=== PATIENT | female | born 1970 | race Caucasian/White ===

== ENCOUNTER 2025-07-06 18:29 | Observation (INO) | payer OTHER, SELFPAY ==
[2025-07-06] VITALS (7 sets, daily range): BP systolic 132–144; BP diastolic 54–68; PULSE 71–73; RESP 12–18; TEMP 36.6; O2SAT 98–100; BMI 18.9
[2025-07-06 19:30] LABS: Hematocrit 28.9 % (37-47); Hemoglobin 9.3 g/dL (12.0-15.0); Immature Granulocytes Count 0.050 X10^3/uL (0.0-0.0); Mean Corp Hgb Conc 32.2 g/dL (32-36); Mean Corpuscular Volume 92.0 fL (81-99); Mean Platelet Vol. 11.2 fl (6.2-12.0); NRBC Flagged by Analyzer 0 % (0-5); Platelet Count 294 K/mm3 (150-450); RBC Distribution Width CV 17.3 % (11.6-14.6); RBC Distribution Width SD 57.2 fl (35.1-43.9); Red Blood Count 3.14 M/mm3 (4.2-5.4); White Blood Count 12.3 K/mm3 (4.4-11.0)
[2025-07-06] MEDS: 0.9% Normal Saline (1000mL) 1,000 ML 999 ML IV (19:43)
--- NOTE | 2025-07-06 19:43 | EX.ED.DYSGE1 ---
HPI History of Present Illness Chief Complaint: Weakness Narrative Narrative: Patient is a 54-year-old female past medical history of diabetes, urolithiasis, pyelonephritis who presents to the emergency department with a chief complaint of generalized weakness, diarrhea not feeling well overall. States that about a week ago she started feeling unwell she notes that she is on Mounjaro for her diabetes and feels that this might be causing her symptoms. She states that she had her lipase checked and it was noted be high. She states that she is post to have a CT scan but since they noted that she was coming to the emergency department they discontinued. Note that the had her gallbladder removed earlier this spring around January at [facility] with Dr. Rahman. Denies any black stools denies blood in her stool states that she has had diarrhea also complains of abdominal pain [facility] Home Medications ?Medication ?Instructions ?Recorded ?Last Taken ?Type buspirone 10 mg tablet 10 mg PO BID 07/06/25 Unknown History cyanocobalamin (vitamin B-12) mcg 07/06/25 Unknown History 1,000 mcg/mL injection solution empagliflozin 25 mg tablet 25 mg PO DAILY 07/06/25 Unknown History (Jardiance) ergocalciferol (vitamin D2) 1,250 PO 07/06/25 Unknown History mcg (50,000 unit) capsule (Vitamin D2) fluoxetine 40 mg capsule 40 mg PO DAILY 07/06/25 Unknown History glimepiride 2 mg tablet 2 mg PO BID 07/06/25 Unknown History infliximab-axxq 100 mg intravenous mg IV 07/06/25 Unknown History solution (Avsola) insulin lispro 100 unit/mL 1 sliding scale dose subcut 07/06/25 Unknown History subcutaneous pen (Humalog KwikPen (U-100) Insulin) leflunomide 10 mg tablet 10 mg PO DAILY 07/06/25 Unknown History magnesium oxide-magnesium amino 1 cap PO DAILY 07/06/25 Unknown History acid chelate 300 mg capsule (Magnesium (oxide/AA chelate)) metformin 500 mg tablet,extended 1,000 mg PO BID 07/06/25 Unknown History release 24 hr pantoprazole 40 mg tablet,delayed 40 mg PO DAILY 07/06/25 Unknown History release pregabalin 150 mg capsule 150 mg PO TID 07/06/25 Unknown History zolpidem 5 mg tablet 5 mg PO QHS PRN PRN sleep 07/06/25 Unknown History Allergy/AdvReac Type Severity Reaction Status Date / Time azithromycin (From z pack) Allergy Mild rash Verified 07/06/25 18:33 Penicillins Allergy Other Verified 07/06/25 18:33 amlodipine AdvReac Mild rash Verified 07/06/25 18:33 Social History Smoking Status: Former smoker ROS ROS ED ROS Narrative Constitutional: Complains of generalized weakness denies any fevers or chills Cardiovascular: Denies chest pain Respiratory: Denies shortness of breath Abdomen: Complains of abdominal pain nausea vomiting diarrhea : Denies urinary symptoms Neurological: Denies numbness, weakness, tingling Musculoskeletal: Denies back pain Skin: Denies any rashes or lesions EXAM Physical Exam Narrative Exam Narrative: General: Patient is lying in bed rest comfortably did appear to be uncomfortable secondary to her abdominal pain Head: Atraumatic, normocephalic Eyes: PERRL bilaterally, EOMI bilaterally, no conjunctival injection noted Neck: Soft and supple, trachea midline Cardiovascular: Regular rate and rhythm Respiratory: Clear to auscultation bilaterally Abdomen: Soft, nondistended, diffuse tenderness to palpation no rebound or guarding on exam Extremities: +4/5 strength noted in the bilateral upper and lower extremities Neurological: Patient follow commands knew that she was at [facility] the year is 2024 Skin: Warm, dry, intact no rashes or lesions noted Const Vital Signs: 07/06/25 18:30 07/06/25 19:45 07/06/25 19:46 Temperature 98 F Temperature Source Oral Pulse Rate 73 72 Respiratory Rate 18 16 Respiratory Effort Non-Labored Respiratory Pattern Normal Blood Pressure 136/60 H 137/62 H Blood Pressure Mean 85 87 Pulse Ox 99 98 Oxygen Delivery Method Room Air 07/06/25 20:00 07/06/25 21:00 07/06/25 22:27 Temperature Temperature Source Pulse Rate 71 72 73 Respiratory Rate 18 12 Respiratory Effort Respiratory Pattern Blood Pressure 133/62 H 133/61 H 132/54 H Blood Pressure Mean 85 85 80 Pulse Ox 100 99 98 Oxygen Delivery Method 07/06/25 23:13 07/06/25 23:14 Temperature 98 F Temperature Source Pulse Rate 72 72 Respiratory Rate 14 14 Respiratory Effort Respiratory Pattern Blood Pressure 144/68 H 144/68 H Blood Pressure Mean 93 93 Pulse Ox 98 98 Oxygen Delivery Method MDM MDM MDM Narrative Medical decision making narrative: Patient is a 54-year-old female who presented to the emergency department the chief complaint of abdominal pain nausea vomiting diarrhea. On the differential diagnose includes but not limited to viral gastroenteritis, pancreatitis, intra-abdominal mass. Once workup is obtained reviewed she will be reevaluated. Patient be given IV fluids morphine Zofran Patient's CBC reviewed and showed a leukocytosis of 12,000, he was 9.3, plate count was noted to be 294. Patient's sodium normal 137, potassium of 4, creatinine was 1. Patient's total bilirubin normal at 1.24, direct bilirubin 0.85. Patient AST and ALT 103 and 41 respectively. Patient alk phos elevated 133, lipase elevated at 170. Patient urinalysis showed positive nitrites 100 leukocyte esterase 10-25 white cells with 3+ bacteria urine was sent for culture she was given a gram Rocephin. Patient CT on pelvis with IV contrast reviewed and showed no bowel obstruction. Findings suggestive of enteritis. Trace nonspecific ascites noted. Discussed case with on-call document scanner Dr. Monae who states the patient can be admitted to the hospital. This point I will discuss case with hospitalist for her pancreatitis, intractable abdominal pain nausea vomiting not tolerating oral intake. Discussed case with hospitalist Dr. Barkley who accept patient for admission. Patient is given another dose of morphine. Notified patient and family was at bedside agreeable this plan all question concerns answered. Lab Data Labs: Laboratory Results - last 24 hr 07/06/25 07/06/25 07/06/25 19:20 19:26 20:48 WBC 12.3 H RBC 3.14 L Hgb 9.3 L Hct 28.9 L MCV 92.0 MCH 29.6 MCHC 32.2 RDW Std Deviation 57.2 H RDW Coeff of Fredy 17.3 H Plt Count 294 MPV 11.2 Immature Gran % (Auto) 0.400 Neut % (Auto) 72.3 H Lymph % (Auto) 16.1 L [place] % (Auto) 6.4 Eos % (Auto) 4.3 Baso % (Auto) 0.5 Absolute Neuts (auto) 8.9 H Absolute Lymphs (auto) 1.98 Nucleated RBC % 0 Sodium 137 Potassium 4.0 Chloride 105 Carbon Dioxide 19.6 L Anion Gap 12 BUN 17 Creatinine 1.00 Estim Creat Clear Calc 60.88 Est GFR (MDRD) Non-Af 67 BUN/Creatinine Ratio 16.8 Glucose 163 H Lactic Acid 1.9 Calcium 9.3 Total Bilirubin 1.24 Direct Bilirubin 0.85 H AST 103 H ALT 41 H Alkaline Phosphatase 133 H Total Protein 6.9 Albumin 3.5 Globulin 3.4 Lipase 170 H Urine Color Yellow Urine Clarity Sl. Cloudy Urine pH 6.0 Ur Specific [place] 1.010 Urine Protein 30 H Urine Glucose (UA) 1000 H Urine Ketones Negative Urine Occult Blood 10 H Urine Nitrite Positive H Urine Bilirubin Negative Urine Urobilinogen Normal Ur Leukocyte Esterase 100 H Urine RBC 0-5 SEEN Urine WBC 10-25 SEEN Ur Squamous Epith Cells 10-25 SEEN Urine Bacteria 3+ Urine Mucus 0 SEEN Urine Yeast RARE Radiography Diagnostic Testing: Clinical Impression(s) from Imaging Studies Abdomen/Pelvis CT 07/06/25 20:05 IMPRESSION: 1. No bowel obstruction or active inflammatory process. 2. Multiple mildly prominent fluid-filled loops of small bowel suggesting enteritis. 3. Trace nonspecific ascites. 4. Lobulated myomatous uterus. Reading Location: [id number] Discharge Plan Dx/Rx/DC Orders Clinical Impression: Pancreatitis, Intractable abdominal pain, Nausea & vomiting Disposition Disposition: Acute Care Hospital [facility]
[2025-07-06 20:00] LABS: AST(SGOT) 103 U/L (<=31); Alanine Aminotransfer ALT/SGPT 41 U/L (<=34); Albumin, Serum 3.5 g/dL (3.5-5.0); Alkaline Phosphatase 133 U/L (35-104); Anion Gap 12 (5-15); BUN 17 mg/dL (4-19); BUN/Creat Ratio 16.8 RATIO (10-20); Bilirubin, Direct 0.85 mg/dL (0.00-0.30); Calcium,Total 9.3 mg/dL (7.6-11.0); Carbon Dioxide 19.6 mmol/L (21.0-32.0); Chloride 105 mmol/L (98-108); Estimated Creatinine Clearance 60.88 ml/min (50-250); Globulin 3.4 g/dL (2.2-4.2); Glucose 163 mg/dL (70-99); Lipase 170 U/L (13-75); Potassium 4.0 mmol/L (3.3-5.1)
--- NOTE | 2025-07-06 20:05 | CT_ITS ---
PROCEDURE: CT ABDOMEN/PELVIS W IV CONT ONLY 07/06/2025 REASON FOR EXAM: ABD PAIN, N/V/D TECHNIQUE: Procedure Code: [id number] Modality: CT Procedure: ABDOMEN/PELVIS W IV CONT ONLY Coronal and Sagittal reconstruction series were provided. CONTRAST: Isovue 370 VOLUME: 99 mL One or more dose reduction techniques were used (e.g., Automated exposure control, adjustment of the mA and/or kV according to patient size, use of iterative reconstruction technique. RADIATION DOSE SUMMARY: DLP: 542.65 mGycm COMPARISON: None. FINDINGS: Lung bases: Clear. Liver: No significant abnormality. Small benign-appearing probable hepatic cyst or hemangioma in the medial right lobe adjacent to the inferior vena cava. Gallbladder: Surgically absent. Spleen: Unremarkable. Pancreas: Unremarkable. Adrenals: Unremarkable. Kidneys: Unremarkable. No urolithiasis or hydronephrosis. Bladder: Unremarkable. Reproductive Organs: Lobulated myomatous uterus. IUD in place. Bowel: Postoperative changes of right hemicolectomy with ileocolonic anastomosis in the right upper abdomen. No evidence of bowel obstruction or active inflammatory process. Multiple mildly prominent fluid-filled loops of small bowel throughout the abdomen, suggesting enteritis. Lymph nodes: No suspicious lymph node enlargement. Vasculature: Normal caliber abdominal aorta. Mild atherosclerotic disease. Peritoneum / Retroperitoneum: Trace nonspecific ascites fluid. No free air. Bones: No significant abnormality. CT/Abdomen/Pelvis W IV Cont ONLY IMPRESSION: 1. No bowel obstruction or active inflammatory process. 2. Multiple mildly prominent fluid-filled loops of small bowel suggesting enter itis. 3. Trace nonspecific ascites. 4. Lobulated myomatous uterus. Reading Location: [id number]
[2025-07-06 20:55] LABS: Mucous, Urine 0 SEEN /hpf (<or=2+)
[2025-07-06 21:14] LABS: Color, Urine Yellow (Yellow); Glucose, Dipstick 1000 mg/dl (Normal); Ketone-Dipstick Negative (Negative); Leukocyte Esterase-Dipstick 100 /ul (Negative); Nitrite-Dipstick Positive (Negative); Occult Blood-Urine 10 /ul (Negative); Protein-Dipstick 30 mg/dl (Negative); Specific Gravity, Urine 1.010 (1.002-1.030); Urine Bilirubin Dipstick Negative (Negative)
[2025-07-06 21:45] LABS: Squamous Epithelial Cells - UA 10-25 SEEN /hpf (5-10)
[2025-07-06 21:46] LABS: Red Blood Cells-Urine 0-5 SEEN /hpf (0-5)
[2025-07-06 21:47] LABS: Yeast-Urine RARE /hpf (None Seen)
--- NOTE | 2025-07-06 23:56 | PCM.HP.STD ---
[facility] - General General Date of Admission: 07/06/25 Date of Service: 07/06/25 Chief Complaint: Abdominal pain HPI Narrative PENNIE VALENZUELA, is a 54 F who presents to the emergency room with chief complaint of abdominal pain. Patient has a significant past medical history of diabetes, urolithiasis, pyelonephritis who presents emergency department with weakness and a 1 week history of abdominal discomfort with diarrhea and overall not feeling well. She correlates the onset of this pain to her last dose of Mounjaro for her diabetes which she takes 2.5 mg currently. She states that she previously had her lipase checked and it was noted to be high as well as it is today. Patient is also status postcholecystectomy earlier this spring at [facility] with Dr. Avinash Rahman. Patient denies any melena or hematochezia associated with her diarrhea or abdominal pain. Laboratory studies reveal white blood cell count 12.3, hemoglobin 9.3, hematocrit 28.9, platelets 29.4, sodium 137, potassium 4.0, chloride 105, bicarb 19.6, BUN 17, creatinine 1.0, lipase 170, positive UTI 3+ bacteria, CT scan is negative for bowel obstruction but shows multiple fluid filled loops of small bowel suggestive of enteritis with trace ascites and also noted to have a lobulated uterus. Patient is full code confirmed she will be admitted to the general medical floor made n.p.o. then IV fluids and pain medication and repeat lipase and labs in the a.m. At which time would start slow with liquid diet advance as tolerated. PFSH Home Medications ?Medication ?Instructions ?Recorded ?Last Taken ?Type buspirone 10 mg tablet 10 mg PO BID 07/06/25 Unknown History cyanocobalamin (vitamin B-12) mcg 07/06/25 Unknown History 1,000 mcg/mL injection solution empagliflozin 25 mg tablet 25 mg PO DAILY 07/06/25 Unknown History (Jardiance) ergocalciferol (vitamin D2) 1,250 PO 07/06/25 Unknown History mcg (50,000 unit) capsule (Vitamin D2) fluoxetine 40 mg capsule 40 mg PO DAILY 07/06/25 Unknown History glimepiride 2 mg tablet 2 mg PO BID 07/06/25 Unknown History infliximab-axxq 100 mg intravenous mg IV 07/06/25 Unknown History solution (Avsola) insulin lispro 100 unit/mL 1 sliding scale dose subcut 07/06/25 Unknown History subcutaneous pen (Humalog KwikPen (U-100) Insulin) leflunomide 10 mg tablet 10 mg PO DAILY 07/06/25 Unknown History magnesium oxide-magnesium amino 1 cap PO DAILY 07/06/25 Unknown History acid chelate 300 mg capsule (Magnesium (oxide/AA chelate)) metformin 500 mg tablet,extended 1,000 mg PO BID 07/06/25 Unknown History release 24 hr pantoprazole 40 mg tablet,delayed 40 mg PO DAILY 07/06/25 Unknown History release pregabalin 150 mg capsule 150 mg PO TID 07/06/25 Unknown History zolpidem 5 mg tablet 5 mg PO QHS PRN PRN sleep 07/06/25 Unknown History Allergy/AdvReac Type Severity Reaction Status Date / Time azithromycin (From z pack) Allergy Mild rash Verified 07/06/25 18:33 Penicillins Allergy Other Verified 07/06/25 18:33 amlodipine AdvReac Mild rash Verified 07/06/25 18:33 Social History Smoking Status: Former smoker ROS Constitutional Constitutional: Denies chills or fever(s) Eyes Eyes: Denies blurry vision ENT HEENT: Denies abnormal hearing Cardiovascular Cardiovascular: Denies chest pain Respiratory/Chest Respiratory/Chest: Denies cough or shortness of breath at rest Gastrointestinal Gastrointestinal: Reports abdominal pain, diarrhea and nausea Genitourinary Genitourinary: Reports dysuria Musculoskeletal Musculoskeletal: Denies back pain Integumentary Integumentary: Denies dry skin Neurologic Neurologic: Denies abnormal gait Psychiatric Psychiatric: Denies anxiety Vital Signs Vital Signs Vital Signs: 07/06/25 18:30 07/06/25 19:45 07/06/25 19:46 Temperature 98 F Temperature Source Oral Pulse Rate 73 72 Respiratory Rate 18 16 Respiratory Effort Non-Labored Respiratory Pattern Normal Blood Pressure 136/60 H 137/62 H Blood Pressure Mean 85 87 Pulse Ox 99 98 Oxygen Delivery Method Room Air 07/06/25 20:00 07/06/25 21:00 07/06/25 22:27 Temperature Temperature Source Pulse Rate 71 72 73 Respiratory Rate 18 12 Respiratory Effort Respiratory Pattern Blood Pressure 133/62 H 133/61 H 132/54 H Blood Pressure Mean 85 85 80 Pulse Ox 100 99 98 Oxygen Delivery Method 07/06/25 23:13 07/06/25 23:14 Temperature 98 F Temperature Source Pulse Rate 72 72 Respiratory Rate 14 14 Respiratory Effort Respiratory Pattern Blood Pressure 144/68 H 144/68 H Blood Pressure Mean 93 93 Pulse Ox 98 98 Oxygen Delivery Method Weight Weight: 132 lb 3 oz Body Mass Index (BMI) 18.9 Physical Exam Const alert and oriented x3 General Appearance: cooperative and well developed HEENT normocephalic and head/scalp atraumatic Eyes PERRL Neck no lymphadenopathy Lymph Lymphatic: no lymphadenopathy noted Resp normal respiratory effort, normal air movement and clear to auscultation bilaterally Cardio regular rate, regular rhythm, S1 normal heart sound, S2 normal heart sound and no murmurs GI Palpation: tender other (Generalized); Negative for guarding Extremity normal capillary refill Skin General Skin Exam: no breakdown Neuro no focal motor deficits and no sensory deficits noted Results Lab / Micro Data 07/06/25 19:20 07/06/25 19:20 Labs: Laboratory Results - last 24 hr 07/06/25 19:20: WBC 12.3 H, RBC 3.14 L, Hgb 9.3 L, Hct 28.9 L, MCV 92.0, MCH 29.6, MCHC 32.2, RDW Std Deviation 57.2 H, RDW Coeff of Fredy 17.3 H, Plt Count 294, MPV 11.2, Immature Gran % (Auto) 0.400, Neut % (Auto) 72.3 H, Lymph % (Auto) 16.1 L, [place] % (Auto) 6.4, Eos % (Auto) 4.3, Baso % (Auto) 0.5, Absolute Neuts (auto) 8.9 H, Absolute Lymphs (auto) 1.98, Nucleated RBC % 0, Sodium 137, Potassium 4.0, Chloride 105, Carbon Dioxide 19.6 L, Anion Gap 12, BUN 17, Creatinine 1.00, Estim Creat Clear Calc 60.88, Est GFR (MDRD) Non-Af 67, BUN/Creatinine Ratio 16.8, Glucose 163 H, Calcium 9.3, Total Bilirubin 1.24, Direct Bilirubin 0.85 H, AST 103 H, ALT 41 H, Alkaline Phosphatase 133 H, Total Protein 6.9, Albumin 3.5, Globulin 3.4, Lipase 170 H 07/06/25 19:26: Lactic Acid 1.9 07/06/25 20:48: Urine Color Yellow, Urine Clarity Sl. Cloudy, Urine pH 6.0, Ur Specific [place] 1.010, Urine Protein 30 H, Urine Glucose (UA) 1000 H, Urine Ketones Negative, Urine Occult Blood 10 H, Urine Nitrite Positive H, Urine Bilirubin Negative, Urine Urobilinogen Normal, Ur Leukocyte Esterase 100 H, Urine RBC 0-5 SEEN, Urine WBC 10-25 SEEN, Ur Squamous Epith Cells 10-25 SEEN, Urine Bacteria 3+, Urine Mucus 0 SEEN, Urine Yeast RARE Imaging Radiology Impression Abdomen/Pelvis CT 07/06/25 20:05 IMPRESSION: 1. No bowel obstruction or active inflammatory process. 2. Multiple mildly prominent fluid-filled loops of small bowel suggesting enteritis. 3. Trace nonspecific ascites. 4. Lobulated myomatous uterus. Reading Location: [id number] Assessment & Plan Assessment/Plan (1) Nausea & vomiting: (2) Intractable abdominal pain: (3) Pancreatitis: (4) Type II diabetes mellitus: PLAN: Plan 1 abdominal pain?admit patient to general medical floor make n.p.o. start IV fluid normal saline at 125 cc/h, add Dilaudid 0.5 mg every 3 hours as needed pain, repeat CBC CMP and lipase in a.m. 2. Pancreatitis?repeat lipase in a.m. may then start liquid diet and advance as tolerated 3. Nausea and vomiting?add Zofran as needed for nausea 4. Diabetes continue routine home medications however discontinued the GLP-1 medication 5. DVT prophylaxis?low molecular weight heparin 6. CODE STATUS full confirmed Charges/Coding Visit Charges Inpatient E&M: 77254 Init Hosp L2
[2025-07-07 00:04] VITALS: BP 133/68; PULSE 71; RESP 15; O2SAT 96
[2025-07-07 01:15] VITALS: BMI 19.2
[2025-07-07 01:17] VITALS: BP 142/79; PULSE 72; RESP 16; TEMP 36.9; O2SAT 98
[2025-07-07] MEDS: 0.9% Saline Lock 10 ML Syringe IV ×2 (02:15→02:28)
[2025-07-07] MEDS: 0.9% Normal Saline (1000mL) 1,000 ML 125 ML IV ×3 (02:15→17:27)
[2025-07-07] MEDS: HYDROmorphone 0.5 MG/0.5 ML SYRINGE IV ×3 (02:28→16:32)
[2025-07-07 06:07] VITALS: BP 122/62; PULSE 72; RESP 18; TEMP 36.9; O2SAT 97
[2025-07-07 07:18] LABS: Hematocrit 25.6 % (37-47); Hemoglobin 8.2 g/dL (12.0-15.0); Immature Granulocytes Count 0.040 X10^3/uL (0.0-0.0); Mean Corp Hgb Conc 32.0 g/dL (32-36); Mean Corpuscular Volume 92.8 fL (81-99); Mean Platelet Vol. 11.4 fl (6.2-12.0); NRBC Flagged by Analyzer 0 % (0-5); Platelet Count 255 K/mm3 (150-450); RBC Distribution Width CV 17.4 % (11.6-14.6); RBC Distribution Width SD 59.3 fl (35.1-43.9); Red Blood Count 2.76 M/mm3 (4.2-5.4); White Blood Count 11.9 K/mm3 (4.4-11.0)
[2025-07-07 07:42] LABS: AST(SGOT) 94 U/L (<=31); Alanine Aminotransfer ALT/SGPT 35 U/L (<=34); Albumin, Serum 3.1 g/dL (3.5-5.0); Alkaline Phosphatase 117 U/L (35-104); Anion Gap 12 (5-15); BUN 13 mg/dL (4-19); BUN/Creat Ratio 16.4 RATIO (10-20); Calcium,Total 8.5 mg/dL (7.6-11.0); Carbon Dioxide 17.9 mmol/L (21.0-32.0); Chloride 108 mmol/L (98-108); Estimated Creatinine Clearance 79.01 ml/min (50-250); Globulin 3.0 g/dL (2.2-4.2); Glucose 120 mg/dL (70-99); Potassium 3.9 mmol/L (3.3-5.1)
[2025-07-07 08:47] VITALS: BP 108/55; PULSE 76; RESP 16; TEMP 36.8; O2SAT 96
[2025-07-07] MEDS: metFORMIN (XR) 500 MG Tablet 1000 MG PO ×2 (09:39→16:32)
[2025-07-07] MEDS: Magnesium Chloride 64 MG Delay Rel.Tablet 128 MG PO (09:39)
--- NOTE | 2025-07-07 10:45 | PN.HOSP_ITS ---
Subjective Subjective Resting comfortably, no issues overnight Objective Data Objective Data Vital Signs: Vital Signs Temp Pulse Resp BP Pulse Ox O2 Del Method 98.2 F 76 16 108/55 L 96 Room Air 07/07/25 08:47 07/07/25 08:47 07/07/25 08:47 07/07/25 08:47 07/07/25 08:47 07/07/25 08:47 Oxygen Delivery Method Room Air Weight: 133 lb 13.129 oz Body Mass Index (BMI) 19.2 Intake & Output: Intake and Output for Last 24 Hours 07/06/25 07/07/25 07/08/25 03:59 03:59 03:59 Intake Total 1050 / 1050 933.33 / 933.33 Balance 1050 / 1050 933.33 / 933.33 Lab / Micro Data 07/07/25 06:56 07/07/25 06:56 Labs: Laboratory Results - last 24 hr 07/06/25 19:20: WBC 12.3 H, RBC 3.14 L, Hgb 9.3 L, Hct 28.9 L, MCV 92.0, MCH 29.6, MCHC 32.2, RDW Std Deviation 57.2 H, RDW Coeff of Fredy 17.3 H, Plt Count 294, MPV 11.2, Immature Gran % (Auto) 0.400, Neut % (Auto) 72.3 H, Lymph % (Auto) 16.1 L, [place] % (Auto) 6.4, Eos % (Auto) 4.3, Baso % (Auto) 0.5, Absolute Neuts (auto) 8.9 H, Absolute Lymphs (auto) 1.98, Nucleated RBC % 0, Sodium 137, Potassium 4.0, Chloride 105, Carbon Dioxide 19.6 L, Anion Gap 12, BUN 17, Creatinine 1.00, Estim Creat Clear Calc 60.88, Est GFR (MDRD) Non-Af 67, BUN/Creatinine Ratio 16.8, Glucose 163 H, Calcium 9.3, Total Bilirubin 1.24, D irect Bilirubin 0.85 H, AST 103 H, ALT 41 H, Alkaline Phosphatase 133 H, Total Protein 6.9, Albumin 3.5, Globulin 3.4, Lipase 170 H 07/06/25 19:26: Lactic Acid 1.9 07/06/25 20:48: Urine Color Yellow, Urine Clarity Sl. Cloudy, Urine pH 6.0, Ur Specific [place] 1.010, Urine Protein 30 H, Urine Glucose (UA) 1000 H, Urine Ketones Negative, Urine Occult Blood 10 H, Urine Nitrite Positive H, Urine Bilirubin Negative, Urine Urobilinogen Normal, Ur Leukocyte Esterase 100 H, Urine RBC 0-5 SEEN, Urine WBC 10-25 SEEN, Ur Squamous Epith Cells 10-25 SEEN, Urine Bacteria 3+, Urine Mucus 0 SEEN, Urine Yeast RARE 07/07/25 02:14: POC Glucose 126 H 07/07/25 06:10: POC Glucose 55 L 07/07/25 06:36: POC Glucose 99 07/07/25 06:56: WBC 11.9 H, RBC 2.76 L, Hgb 8.2 L, Hct 25.6 L, MCV 92.8, MCH 29.7, MCHC 32.0, RDW Std Deviation 59.3 H, RDW Coeff of Fredy 17.4 H, Plt Count 255, MPV 11.4, Immature Gran % (Auto) 0.300, Neut % (Auto) 75.2 H, Lymph % (Auto) 12.3 L, [place] % (Auto) 7.6, Eos % (Auto) 4.2, Baso % (Auto) 0.4, Absolute Neuts (auto) 9.0 H, Absolute Lymphs (auto) 1.47, Nucleated RBC % 0, Sodium 138, Potassium 3.9, Chloride 108, Carbon Dioxide 17.9 L, Anion Gap 12, BUN 13, Creatinine 0.78, Estim Creat Clear Calc 79.01, Est GFR (MDRD) Non-Af 90, BUN/Creatinine Ratio 16.4, Glucose 120 H, Calcium 8.5, Total Bilirubin 1.21, AST 94 H, ALT 35, Alkaline Phosphatase 117 H, Total Protein 6.1, Albumin 3.1 L, Globulin 3.0, Albumin/Globulin Ratio 1.0 Radiography Diagnostic Testing: Radiology Impression Abdomen/Pelvis CT 07/06/25 20:05 IMPRESSION: 1. No bowel obstruction or active inflammatory process. 2. Multiple mildly prominent fluid-filled loops of small bowel suggesting enteritis. 3. Trace nonspecific ascites. 4. Lobulated myomatous uterus. Reading Location: [facility] Physical Exam Narrative General: Alert, Oriented x3, Cooperative, No apparent distress HEENT: Atraumatic, PERRLA, EOMI, Normocephalic Oral: Moist Mucosa Neck: Supple, No JVD Lungs: Diminished, Normal air movement, No rhonchi, No wheeze, No rales Cardiovascular: Regular rate, Regular Rhythm, Normal S1, Normal S2, No murmurs Abdomen: Soft, Non Tender, Non-Distended, No Hepato-splenomegaly Extremities: No edema, Capillary Refill Less than 3 Seconds Skin: No rashes, No breakdown Musculoskeletal: No Tenderness to Palpation of Joints or Extremities Neurological: No focal neurological deficits, moves all extremities Psych/Mental Status: Normal Affect, Appropriate Assessment & Plan Assessment/Plan (1) Nausea & vomiting: (2) Intractable abdominal pain: (3) Type II diabetes mellitus: PLAN: Plan 1. Abdominal pain secondary to gastroenteritis ? No pancreatitis as pancreas on CT scan was unremarkable and lipase is not elevated enough to indicate a pancreatitis at this time ? Continue with IV fluids ? Stool studies are pending though she may have had stool studies done at an outside hospital ? Continue with a carb controlled diet ? Continue Zofran 2. Possible UTI ? UA is equivocal with elevated squames however she did have a leukocytosis ? Urine cultures pending ? Continue with Rocephin empirically 3. DM2 ? Hold her home medications ? Accu-Cheks ? Sliding scale insulin ? Will monitor make adjustments as necessary DVT: Lovenox Charges/Coding Visit Charges Inpatient E&M: 70354 Subs Hosp L2
--- NOTE | 2025-07-07 11:33 | CASEMGMT ---
Dx:abdominal pain pancreatitis LACE:2 6-Clicks:24 Medical record reviewed and patient evaluated for identification of discharge planning needs. Based on this review, at this time criteria are not present to indicate a need for discharge planning. Will remain available to assist with discharge planning needs as identified or requested.
[2025-07-07 11:38] LABS: Ferritin 160 ng/mL (22-378); Iron 69 ug/dL (50-170); Iron Binding Capacity,Total 337 ug/dL (250-450); Iron Binding Capacity,Unsat 268 ug/dL (228-428)
[2025-07-07 14:00] VITALS: BP 114/54; PULSE 72; RESP 16; TEMP 36.9; O2SAT 97
[2025-07-07 21:22] VITALS: BP 133/67; PULSE 68; RESP 16; TEMP 36.9; O2SAT 97
[2025-07-08] MEDS: 0.9% Normal Saline (1000mL) 1,000 ML 125 ML IV ×3 (02:29→20:43)
[2025-07-08 03:35] VITALS: BP 137/66; PULSE 70; RESP 18; TEMP 37; O2SAT 96
[2025-07-08 06:36] LABS: Hematocrit 26.0 % (37-47); Hemoglobin 8.3 g/dL (12.0-15.0); Immature Granulocytes Count 0.040 X10^3/uL (0.0-0.0); Mean Corp Hgb Conc 31.9 g/dL (32-36); Mean Corpuscular Volume 92.2 fL (81-99); Mean Platelet Vol. 11.7 fl (6.2-12.0); NRBC Flagged by Analyzer 0 % (0-5); Platelet Count 256 K/mm3 (150-450); RBC Distribution Width CV 17.5 % (11.6-14.6); RBC Distribution Width SD 59.2 fl (35.1-43.9); Red Blood Count 2.82 M/mm3 (4.2-5.4); White Blood Count 10.4 K/mm3 (4.4-11.0)
[2025-07-08 07:09] LABS: AST(SGOT) 93 U/L (<=31); Alanine Aminotransfer ALT/SGPT 36 U/L (<=34); Albumin, Serum 3.1 g/dL (3.5-5.0); Alkaline Phosphatase 124 U/L (35-104); Anion Gap 10 (5-15); BUN 13 mg/dL (4-19); BUN/Creat Ratio 18.4 RATIO (10-20); Calcium,Total 8.9 mg/dL (7.6-11.0); Carbon Dioxide 19.8 mmol/L (21.0-32.0); Chloride 111 mmol/L (98-108); Estimated Creatinine Clearance 89.32 ml/min (50-250); Globulin 2.9 g/dL (2.2-4.2); Glucose 153 mg/dL (70-99); Potassium 4.0 mmol/L (3.3-5.1)
[2025-07-08 09:56] VITALS: BP 137/59; PULSE 71; RESP 16; TEMP 36.8; O2SAT 97
[2025-07-08] MEDS: Magnesium Chloride 64 MG Delay Rel.Tablet 128 MG PO (09:59)
[2025-07-08] MEDS: Glucerna Shake 120 ML LIQUID PO ×2 (10:02→16:41)
--- NOTE | 2025-07-08 13:13 | PCM.PN.HOSP ---
Subjective Subjective Had some abdominal pain and hypoglycemia overnight Objective Data Objective Data Vital Signs: Vital Signs Temp Pulse Resp BP Pulse Ox O2 Del Method 98.3 F 71 16 137/59 H 97 Room Air 07/08/25 09:56 07/08/25 09:56 07/08/25 09:56 07/08/25 09:56 07/08/25 09:56 07/08/25 10:00 Oxygen Delivery Method Room Air Weight: 133 lb 13.129 oz Body Mass Index (BMI) 19.2 Intake & Output: Intake and Output for Last 24 Hours 07/07/25 07/08/25 07/09/25 03:59 03:59 03:59 Intake Total 1050 / 1050 3489.59 / 3489.59 1400 / 1400 Balance 1050 / 1050 3489.59 / 3489.59 1400 / 1400 Lab / Micro Data 07/08/25 05:38 07/08/25 05:38 Labs: Laboratory Results - last 24 hr 07/07/25 16:28: POC Glucose 73 L 07/07/25 21:25: POC Glucose 78 07/07/25 22:08: POC Glucose 86 07/08/25 03:35: POC Glucose 55 L 07/08/25 04:02: POC Glucose 59 L 07/08/25 05:38: WBC 10.4, RBC 2.82 L, Hgb 8.3 L, Hct 26.0 L, MCV 92.2, MCH 29.4, MCHC 31.9 L, RDW Std Deviation 59.2 H, RDW Coeff of Fredy 17.5 H, Plt Count 256, MPV 11.7, Immature Gran % (Auto) 0.400, Neut % (Auto) 75.1 H, Lymph % (Auto) 12.8 L, [place] % (Auto) 6.8, Eos % (Auto) 4.4, Baso % (Auto) 0.5, Absolute Neuts (auto) 7.8 H, Absolute Lymphs (auto) 1.34, Nucleated RBC % 0, Sodium 140, Potassium 4.0, Chloride 111 H, Carbon Dioxide 19.8 L, Anion Gap 10, BUN 13, Creatinine 0.69 L, Estim Creat Clear Calc 89.32, Est GFR (MDRD) Non-Af 103, BUN/Creatinine Ratio 18.4, Glucose 153 H, Calcium 8.9, Total Bilirubin 1.12, AST 93 H, ALT 36 H, Alkaline Phosphatase 124 H, Total Protein 6.0, Albumin 3.1 L, Globulin 2.9, Albumin/Globulin Ratio 1.1 07/08/25 06:38: POC Glucose 174 H 07/08/25 11:26: POC Glucose 203 H Micro: Microbiology 07/06/25 20:48 Urine, Clean Catch Urine Culture - Preliminary GNR lactose apartment maintenance Gram negative donna Physical Exam Narrative General: Alert, Oriented x3, Cooperative, No apparent distress HEENT: Atraumatic, PERRLA, EOMI, Normocephalic Oral: Moist Mucosa Neck: Supple, No JVD Lungs: Diminished, Normal air movement, No rhonchi, No wheeze, No rales Cardiovascular: Regular rate, Regular Rhythm, Normal S1, Normal S2, No murmurs Abdomen: Soft, mild epigastric tenderness, Non-Distended, No Hepato-splenomegaly Extremities: No edema, Capillary Refill Less than 3 Seconds Skin: No rashes, No breakdown Musculoskeletal: No Tenderness to Palpation of Joints or Extremities Neurological: No focal neurological deficits, moves all extremities Psych/Mental Status: Normal Affect, Appropriate Assessment & Plan Assessment/Plan (1) Nausea & vomiting: (2) Intractable abdominal pain: (3) Type II diabetes mellitus: PLAN: Plan 1. Abdominal pain secondary to gastroenteritis ? No pancreatitis as pancreas on CT scan was unremarkable and lipase is not elevated enough to indicate a pancreatitis at this time ? Continue with IV fluids ?She did have negative stool studies on outside hospital 4 days ago ? Continue with a carb controlled diet ? Continue Zofran 2. Possible UTI ? UA is equivocal with elevated squames however she did have a leukocytosis ? Urine cultures pending ? Continue with Rocephin empirically 3. DM2 ? Hold her home medications ? Accu-Cheks ? Sliding scale insulin ? Will monitor make adjustments as necessary DVT: Lovenox Charges/Coding Visit Charges Inpatient E&M: 13532 Subs Hosp L2
[2025-07-08 14:09] VITALS: BP 112/55; PULSE 71; RESP 15; TEMP 37; O2SAT 98
[2025-07-08 20:32] VITALS: BP 152/73; PULSE 66; RESP 16; TEMP 36.7; O2SAT 98
[2025-07-09 03:11] VITALS: BP 138/75; PULSE 64; RESP 16; TEMP 36.7; O2SAT 98
[2025-07-09] MEDS: 0.9% Normal Saline (1000mL) 1,000 ML 125 ML IV ×2 (04:53→13:54)
[2025-07-09 06:39] LABS: Hematocrit 25.7 % (37-47); Hemoglobin 8.1 g/dL (12.0-15.0); Immature Granulocytes Count 0.050 X10^3/uL (0.0-0.0); Mean Corp Hgb Conc 31.5 g/dL (32-36); Mean Corpuscular Volume 92.4 fL (81-99); Mean Platelet Vol. 11.2 fl (6.2-12.0); NRBC Flagged by Analyzer 0 % (0-5); Platelet Count 262 K/mm3 (150-450); RBC Distribution Width CV 17.4 % (11.6-14.6); RBC Distribution Width SD 57.8 fl (35.1-43.9); Red Blood Count 2.78 M/mm3 (4.2-5.4); White Blood Count 10.0 K/mm3 (4.4-11.0)
[2025-07-09 07:04] LABS: AST(SGOT) 83 U/L (<=31); Alanine Aminotransfer ALT/SGPT 31 U/L (<=34); Albumin, Serum 3.0 g/dL (3.5-5.0); Alkaline Phosphatase 122 U/L (35-104); Anion Gap 7 (5-15); BUN 15 mg/dL (4-19); BUN/Creat Ratio 20.6 RATIO (10-20); Calcium,Total 8.7 mg/dL (7.6-11.0); Carbon Dioxide 21.6 mmol/L (21.0-32.0); Chloride 110 mmol/L (98-108); Estimated Creatinine Clearance 85.59 ml/min (50-250); Globulin 3.0 g/dL (2.2-4.2); Glucose 146 mg/dL (70-99); Potassium 4.2 mmol/L (3.3-5.1)
[2025-07-09] MEDS: Glucerna Shake 120 ML LIQUID PO ×3 (08:22→18:04)
[2025-07-09] MEDS: Magnesium Chloride 64 MG Delay Rel.Tablet 128 MG PO (08:22)
[2025-07-09 08:41] VITALS: BP 132/60; PULSE 64; RESP 16; TEMP 36.8; O2SAT 99
--- NOTE | 2025-07-09 11:30 | PCM.PN.HOSP ---
Subjective Subjective Still with little bit of abdominal pain but tolerating a diet. Hemoccults negative unclear where her anemia is coming from Objective Data Objective Data Vital Signs: Vital Signs Temp Pulse Resp BP Pulse Ox O2 Del Method 98.3 F 64 16 132/60 H 99 Room Air 07/09/25 08:41 07/09/25 08:41 07/09/25 08:41 07/09/25 08:41 07/09/25 08:41 07/09/25 08:41 Oxygen Delivery Method Room Air Weight: 133 lb 13.129 oz Body Mass Index (BMI) 19.2 Intake & Output: Intake and Output for Last 24 Hours 07/08/25 07/09/25 07/10/25 03:59 03:59 03:59 Intake Total 3489.59 / 3489.59 3350 / 3350 1000 / 1000 Balance 3489.59 / 3489.59 3350 / 3350 1000 / 1000 Lab / Micro Data 07/09/25 06:01 07/09/25 06:01 Labs: Laboratory Results - last 24 hr 07/08/25 04:31: POC Glucose 73 L 07/08/25 04:45: POC Glucose 99 07/08/25 11:26: POC Glucose 203 H 07/08/25 16:43: POC Glucose 137 H 07/08/25 20:29: POC Glucose 206 H 07/09/25 03:08: POC Glucose 82 07/09/25 06:01: WBC 10.0, RBC 2.78 L, Hgb 8.1 L, Hct 25.7 L, MCV 92.4, MCH 29.1, MCHC 31.5 L, RDW Std Deviation 57.8 H, RDW Coeff of Fredy 17.4 H, Plt Count 262, MPV 11.2, Immature Gran % (Auto) 0.500, Neut % (Auto) 70.4 H, Lymph % (Auto) 18.2 L, [place] % (Auto) 6.1, Eos % (Auto) 4.4, Baso % (Auto) 0.4, Absolute Neuts (auto) 7.0, Absolute Lymphs (auto) 1.82, Nucleated RBC % 0, Sodium 138, Potassium 4.2, Chloride 110 H, Carbon Dioxide 21.6, Anion Gap 7, BUN 15, Creatinine 0.72, Estim Creat Clear Calc 85.59, Est GFR (MDRD) Non-Af 99, BUN/Creatinine Ratio 20.6 H, Glucose 146 H, Calcium 8.7, Total Bilirubin 0.85, AST 83 H, ALT 31, Alkaline Phosphatase 122 H, Total Protein 5.9, Albumin 3.0 L, Globulin 3.0, Albumin/Globulin Ratio 1.0 Micro: Microbiology 07/09/25 09:41 Stool Stool Occult Blood (HERNÁN) - Final 07/06/25 20:48 Urine, Clean Catch 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 Exam Narrative General: Alert, Oriented x3, Cooperative, No apparent distress HEENT: Atraumatic, PERRLA, EOMI, Normocephalic Oral: Moist Mucosa Neck: Supple, No JVD Lungs: Diminished, Normal air movement, No rhonchi, No wheeze, No rales Cardiovascular: Regular rate, Regular Rhythm, Normal S1, Normal S2, No murmurs Abdomen: Soft, mild epigastric tenderness, Non-Distended, No Hepato-splenomegaly Extremities: No edema, Capillary Refill Less than 3 Seconds Skin: No rashes, No breakdown Musculoskeletal: No Tenderness to Palpation of Joints or Extremities Neurological: No focal neurological deficits, moves all extremities Psych/Mental Status: Normal Affect, Appropriate Assessment & Plan Assessment/Plan (1) Nausea & vomiting: (2) Intractable abdominal pain: (3) Type II diabetes mellitus: PLAN: Plan 1. Abdominal pain secondary to gastroenteritis ? No pancreatitis as pancreas on CT scan was unremarkable and lipase is not elevated enough to indicate a pancreatitis at this time ? Continue with IV fluids ?She did have negative stool studies on outside hospital 4 days ago ? Continue with a carb controlled diet ? Continue Zofran 2. Anemia ? Unclear as to the etiology, she takes vitamin B12 injections and iron studies were negative for iron deficiency anemia ? Hemoccult today came back negative ? Will obtain a reticulocyte panel as well as an LDH and haptoglobin, bilirubin is normal ? Will obtain a folic acid level as well 3. Possible UTI ? UA is equivocal with elevated squames however she did have a leukocytosis ? Urine cultures pending with gram-negative rods ? Continue with Rocephin 4. DM2 ? Hold her home medications ? Accu-Cheks ? Sliding scale insulin ? Will monitor make adjustments as necessary DVT: Lovenox Charges/Coding Visit Charges Inpatient E&M: 70634 Subs Hosp L2
[2025-07-09 11:52] VITALS: BP 117/56; PULSE 65; RESP 16; TEMP 36.8; O2SAT 96
[2025-07-09 12:13] LABS: Immature Reticulocyte Fraction 14.20 % (3.00-15.90); Platelet Count 274 K/mm3 (150-450); Reticulocyte Count 3.22 % (0.5-1.5)
[2025-07-09 12:23] LABS: LDH 122 U/L (84-246)
[2025-07-09] MEDS: 0.9% Saline Lock 10 ML Syringe IV (13:57)
[2025-07-09 14:40] LABS: FOLATES,SERUM (FOLIC ACID) 15.20 ng/mL (4.60-34.80)
[2025-07-09 15:28] VITALS: BP 122/60; PULSE 67; RESP 16; TEMP 37; O2SAT 97
[2025-07-09 20:57] VITALS: BP 130/60; PULSE 64; RESP 18; TEMP 36.8; O2SAT 99
[2025-07-10 04:30] VITALS: BP 136/68; PULSE 72; RESP 18; TEMP 36.6; O2SAT 97
[2025-07-10 06:07] LABS: Hematocrit 26.7 % (37-47); Hemoglobin 8.7 g/dL (12.0-15.0); Immature Granulocytes Count 0.030 X10^3/uL (0.0-0.0); Mean Corp Hgb Conc 32.6 g/dL (32-36); Mean Corpuscular Volume 93.0 fL (81-99); Mean Platelet Vol. 11.1 fl (6.2-12.0); NRBC Flagged by Analyzer 0 % (0-5); Platelet Count 276 K/mm3 (150-450); RBC Distribution Width CV 17.6 % (11.6-14.6); RBC Distribution Width SD 58.4 fl (35.1-43.9); Red Blood Count 2.87 M/mm3 (4.2-5.4); White Blood Count 10.3 K/mm3 (4.4-11.0)
[2025-07-10 06:57] LABS: Anion Gap 7 (5-15); BUN 13 mg/dL (4-19); BUN/Creat Ratio 19.2 RATIO (10-20); Calcium,Total 8.9 mg/dL (7.6-11.0); Carbon Dioxide 23.2 mmol/L (21.0-32.0); Chloride 109 mmol/L (98-108); Estimated Creatinine Clearance 88.04 ml/min (50-250); Glucose 75 mg/dL (70-99); Potassium 4.4 mmol/L (3.3-5.1)
[2025-07-10 07:56] VITALS: BP 119/61; PULSE 62; RESP 16; TEMP 36.7; O2SAT 98
[2025-07-10] MEDS: Glucerna Shake 120 ML LIQUID PO ×2 (08:58→11:05)
[2025-07-10] MEDS: Magnesium Chloride 64 MG Delay Rel.Tablet 128 MG PO (08:59)
--- NOTE | 2025-07-10 09:29 | DCINST_ITS ---
Discharge Instructions DC O2, CPAP, BIPAP needs Home O2 Discharge instructions: No Dressing / Incision Discharge Activity: Return to Normal Activity Dressing / Incision Call your doctor if you observe: Fever of 101 or Higher, Shortness of breath, Dizziness, Fainting spells, Swelling in the ankles, Chest pain and Increased palpitations (irregular heartbeat) Follow Up Care Test Results: Test results from this visit will be discussed in further detail at your follow- up appointment, if applicable. Discharge Plan Admission Admit Date/Time: 07/07/25 00:05 Attending Provider: Jose Roy Primary Care Provider: Mandi Harris Consulting Providers: Kemar Barkley Instructions Additional Instructions / Restrictions: Follow-up with your PCP in 3 to 5 days to monitor your hemoglobin. If you continue to have GI discomfort would recommend outpatient follow-up with gastroenterology Discharge Orders/Prescriptions Prescriptions: New cefdinir 300 mg capsule 300 mg PO Q12H Qty: 2 0RF Rx Instructions: Start 07/11/2025 Continued fluoxetine 40 mg capsule 40 mg PO DAILY leflunomide 10 mg tablet 10 mg PO DAILY glimepiride 2 mg tablet 2 mg PO BID pantoprazole 40 mg tablet,delayed release (DR/EC) 40 mg PO DAILY cyanocobalamin (vitamin B-12) 1,000 mcg/mL solution 1,000 mcg IM QMONTH Patient Comments: ADMINISTER 1 ML IN THE MUSCLE 1 TIME EVERY MONTH buspirone 10 mg tablet 10 mg PO BID zolpidem 5 mg tablet 5 mg PO QHS PRN PRN (Reason: sleep) ergocalciferol (vitamin D2) [Vitamin D2] 1,250 mcg (50,000 unit) capsule 1,250 mcg PO FR metformin 500 mg tablet extended release 24 hr 1,000 mg PO BID insulin lispro [Humalog KwikPen Insulin] 100 unit/mL insulin pen 1 sliding scale dose subcut .ac Magnesium (oxide/AA chelate) 300 mg capsule 1 cap PO DAILY pregabalin 150 mg capsule 150 mg PO TID Jardiance 25 mg tablet 25 mg PO DAILY Avsola 100 mg recon soln 100 mg IV UD Patient Comments: every 6 weeks insulin glargine [Basaglar KwikPen U-100 Insulin] 100 unit/mL (3 mL) insulin pen 6 unit subcut QPM Referrals / Follow Up: Mandi Harris MD [Primary Care Provider, Internal Medicine] - Within 1 Week Disposition Disposition (needs filled in before D/C Order can be placed): Home, Self Care
[2025-07-10 11:08] VITALS: BP 125/61; PULSE 68; RESP 16; TEMP 36.9; O2SAT 96
--- NOTE | 2025-07-10 11:17 | PHA.DC.MC.R ---
Pharmacy [facility] Counseling Pharmacy Service has performed discharge medication reconciliation and counseling for this patient. 1. CEFDINIR 300MG PO BID X 1 DAY (07/11) The patient's discharge medication list was reviewed for discrepancies and discrepancies were resolved. The patient was counseled on the following discharge medications and changes in medications for homegoing were reviewed. The Reason for Use, instructions for use, and potential side effects were reviewed for all new medications. The patient's questions regarding all of their medications were answered. The patient was able to verbally demonstrate an understanding of their discharge medications. Medications at Discharge Home Medications buspirone 10 mg tablet 10 mg PO BID 07/06/25 cyanocobalamin (vitamin B-12) 1,000 mcg/mL injection solution 1,000 mcg IM QMONTH b-12 replacement 07/06/25 empagliflozin 25 mg tablet (Jardiance) 25 mg PO DAILY 07/06/25 ergocalciferol (vitamin D2) 1,250 mcg (50,000 unit) capsule (Vitamin D2) 1,250 mcg PO FR d2 07/06/25 fluoxetine 40 mg capsule 40 mg PO DAILY 07/06/25 glimepiride 2 mg tablet 2 mg PO BID 07/06/25 infliximab-axxq 100 mg intravenous solution (Avsola) [address] 07/06/25 insulin lispro 100 unit/mL subcutaneous pen (Humalog KwikPen (U-100) Insulin) 1 sliding scale dose subcut .ac dm 07/06/25 leflunomide 10 mg tablet 10 mg PO DAILY 07/06/25 magnesium oxide-magnesium amino acid chelate 300 mg capsule (Magnesium (oxide/AA chelate)) 1 cap PO DAILY 07/06/25 metformin 500 mg tablet,extended release 24 hr 1,000 mg PO BID 07/06/25 pantoprazole 40 mg tablet,delayed release 40 mg PO DAILY 07/06/25 pregabalin 150 mg capsule 150 mg PO TID 07/06/25 zolpidem 5 mg tablet 5 mg PO QHS PRN PRN sleep 07/06/25 insulin glargine 100 unit/mL (3 mL) subcutaneous pen (Basaglar KwikPen U-100 Insulin) 6 unit subcut QPM dm 07/07/25 cefdinir 300 mg capsule 300 mg PO Q12H #2 caps 07/10/25
--- NOTE | 2025-07-10 12:25 | DS.PCM_ITS ---
Providers Date of Admission: 07/07/25 Primary Care Physician: Dr. Mandi Harris MD Reason For Visit: ABDOMINAL PAIN PANCREATITIS Diagnosis Discharge Diagnosis (1) Nausea & vomiting: Status: Acute Code(s): R11.2 - Nausea with vomiting, unspecified (2) Intractable abdominal pain: Status: Acute Code(s): R10.9 - Unspecified abdominal pain (3) Type II diabetes mellitus: Status: Chronic Code(s): E11.9 - Type 2 diabetes mellitus without complications Plan 1. Abdominal pain secondary to gastroenteritis ? No pancreatitis as pancreas on CT scan was unremarkable and lipase is not elevated enough to indicate a pancreatitis at this time ? Continue with IV fluids ?She did have negative stool studies on outside hospital 4 days ago ? Continue with a carb controlled diet ? Continue Zofran 2. Anemia ? Unclear as to the etiology, she takes vitamin B12 injections and iron studies were negative for iron deficiency anemia ? Hemoccult today came back negative ? Will obtain a reticulocyte panel as well as an LDH and haptoglobin, bilirubin is normal ? Will obtain a folic acid level as well 3. Possible UTI ? UA is equivocal with elevated squames however she did have a leukocytosis ? Urine cultures pending with gram-negative rods ? Continue with Rocephin 4. DM2 ? Hold her home medications ? Accu-Cheks ? Sliding scale insulin ? Will monitor make adjustments as necessary DVT: Lovenox Medications at Discharge Home Medications buspirone 10 mg tablet 10 mg PO BID 07/06/25 cyanocobalamin (vitamin B-12) 1,000 mcg/mL injection solution 1,000 mcg IM QMONTH b-12 replacement 07/06/25 empagliflozin 25 mg tablet (Jardiance) 25 mg PO DAILY 07/06/25 ergocalciferol (vitamin D2) 1,250 mcg (50,000 unit) capsule (Vitamin D2) 1,250 mcg PO FR d2 07/06/25 fluoxetine 40 mg capsule 40 mg PO DAILY 07/06/25 glimepiride 2 mg tablet 2 mg PO BID 07/06/25 infliximab-axxq 100 mg intravenous solution (Avsola) 100 mg IV UD see 07/06/25 insulin lispro 100 unit/mL subcutaneous pen (Humalog KwikPen (U-100) Insulin) 1 sliding scale dose subcut .ac dm 07/06/25 leflunomide 10 mg tablet 10 mg PO DAILY 07/06/25 magnesium oxide-magnesium amino acid chelate 300 mg capsule (Magnesium (oxide/AA chelate)) 1 cap PO DAILY 07/06/25 metformin 500 mg tablet,extended release 24 hr 1,000 mg PO BID 07/06/25 pantoprazole 40 mg tablet,delayed release 40 mg PO DAILY 07/06/25 pregabalin 150 mg capsule 150 mg PO TID 07/06/25 zolpidem 5 mg tablet 5 mg PO QHS PRN PRN sleep 07/06/25 insulin glargine 100 unit/mL (3 mL) subcutaneous pen (Basaglar KwikPen U-100 Insulin) 6 unit subcut QPM dm 07/07/25 cefdinir 300 mg capsule 300 mg PO Q12H #2 caps 07/10/25 Hospital Course Operations None Procedures None Summary of Care Provided Minutes Spent on Discharge: 37 Hospital Course: Per HPI: PENNIE VALENZUELA, is a 54 F who presents to the emergency room with chief complaint of abdominal pain. Patient has a significant past medical history of diabetes, urolithiasis, pyelonephritis who presents emergency department with weakness and a 1 week history of abdominal discomfort with diarrhea and overall not feeling well. She correlates the onset of this pain to her last dose of Mounjaro for her diabetes which she takes 2.5 mg currently. She states that she previously had her lipase checked and it was noted to be high as well as it is today. Patient is also status postcholecystectomy earlier this spring at [facility] with Dr. Avinash Rahman. Patient denies any melena or hematochezia associated with her diarrhea or abdominal pain. Laboratory studies reveal white blood cell count 12.3, hemoglobin 9.3, hematocrit 28.9, platelets 29.4, sodium 137, potassium 4.0, chloride 105, bicarb 19.6, BUN 17, creatinine 1.0, lipase 170, positive UTI 3+ bacteria, CT scan is negative for bowel obstruction but shows multiple fluid filled loops of small bowel suggestive of enteritis with trace ascites and also noted to have a lobulated uterus. Patient is full code confirmed she will be admitted to the general medical floor made n.p.o. then IV fluids and pain medication and repeat lipase and labs in the a.m. At which time would start slow with liquid diet advance as tolerated. Hospital Course: 1. Viral gastroenteritis?50-year-old female presented to the hospital with acute on chronic abdominal pain as well as nausea, vomiting, diarrhea. Most of her GI symptoms that started several weeks in the past that she was attributing to medication use with Mounjaro for her diabetes. However the last couple weeks it had gotten worse and her PCP had ordered stool studies that were done on the Sunday prior to admission and these were negative for any infectious etiology. CT scan here in the hospital demonstrated dilated loops of small bowel with inflammation around it consistent with enteritis. Her lipase was slightly elevated but it did not meet the criteria for diagnosis of pancreatitis and there is no peripancreatic fat stranding or signs of inflammation therefore she did not have pancreatitis. She was started on a diet with improvement in her symptoms throughout her hospitalization, her nausea and vomiting completely resolved and her abdominal pain improved significantly. She does continue to have some diarrhea but it was tested and it was negative for blood. I discussed with her the plan for possible discharge today and she expressed understanding of the risks and benefits of going home and would like to go home today. I do recommend outpatient follow-up with her PCP in 3 to 5 days, if her GI symptoms do not improve over the next 4 weeks I recommend follow-up with gastroenterology. 2. Anemia?etiology is unclear, however when she presented to the hospital she had a hemoglobin of 9.3, family was able to look up labs from 2 weeks prior that were around 12. I stated above her Hemoccult was negative for blood and she did not have any iron deficiency, folate was normal and she takes monthly vitamin B12 injections and she did not have a macrocytic anemia it was normocytic and normochromic in nature. Her reticulocyte count was elevated to 3.2% and she did continue to drop but this was likely dilutional her fluids were stopped the day prior to discharge and her hemoglobin improved from 8.1 up to 8.7. What I suspect is that she may have had a GI bleed that resolved between her last lab work as an outpatient and her admission to the hospital. Will recommend continuing her Protonix and monitoring her stools, I do recommend that she follow-up with her PCP to obtain CBC next week to ensure stability of her hemoglobin. 3. UTI?on evaluation her UA was consistent with UTI, urine culture showed 50- 80,000 CFU of Klebsiella pneumonia she received 4 doses of Rocephin so we will discharge her on 1 day of cefdinir to complete treatment. 4. Anxiety, depression, type 2 diabetes, psoriasis are all chronic medical conditions which complicate her care. Her home medications were continued where appropriate Physical Exam Narrative General: Alert, Oriented x3, Cooperative, No apparent distress HEENT: Atraumatic, PERRLA, EOMI, Normocephalic Oral: Moist Mucosa Neck: Supple, No JVD Lungs: Diminished, Normal air movement, No rhonchi, No wheeze, No rales Cardiovascular: Regular rate, Regular Rhythm, Normal S1, Normal S2, No murmurs Abdomen: Soft, mild epigastric tenderness, Non-Distended, No Hepato-splenomegaly Extremities: No edema, Capillary Refill Less than 3 Seconds Skin: No rashes, No breakdown Musculoskeletal: No Tenderness to Palpation of Joints or Extremities Neurological: No focal neurological deficits, moves all extremities Psych/Mental Status: Normal Affect, Appropriate Weight / BMI Weight Weight: 133 lb 13.129 oz Body Mass Index (BMI) 19.2 ABG / Lab / Microbiology Data 07/10/25 05:34 07/10/25 05:34 Laboratory: Laboratory Results - last 24 hr 07/09/25 12:00: Haptoglobin 109, Serum Folate 15.20 07/09/25 15:59: POC Glucose 168 H 07/09/25 21:00: POC Glucose 258 H 07/10/25 05:31: POC Glucose 76 07/10/25 05:34: WBC 10.3, RBC 2.87 L, Hgb 8.7 L, Hct 26.7 L, MCV 93.0, MCH 30.3, MCHC 32.6, RDW Std Deviation 58.4 H, RDW Coeff of Fredy 17.6 H, Plt Count 276, MPV 11.1, Immature Gran % (Auto) 0.300, Neut % (Auto) 69.1, Lymph % (Auto) 19.1, [place] % (Auto) 6.7, Eos % (Auto) 4.3, Baso % (Auto) 0.5, Absolute Neuts (auto) 7.1, Absolute Lymphs (auto) 1.96, Nucleated RBC % 0, Sodium 140, Potassium 4.4, Chloride 109 H, Carbon Dioxide 23.2, Anion Gap 7, BUN 13, Creatinine 0.70, Estim Creat Clear Calc 88.04, Est GFR (MDRD) Non-Af 103, BUN/Creatinine Ratio 19.2, Glucose 75, Calcium 8.9 07/10/25 11:01: POC Glucose 223 H Microbiology: Microbiology 07/06/25 20:48 Urine, Clean Catch Urine Culture - Final Klebsiella pneumoniae sp pneum 07/09/25 09:41 Stool Stool Occult Blood (HERNÁN) - Final D/C Instructions Call your doctor if you observe: Fever of 101 or Higher, Shortness of breath, Dizziness, Fainting spells, Swelling in the ankles, Chest pain and Increased palpitations (irregular heartbeat) DC O2, CPAP, BIPAP Needs Home O2 Discharge instructions: No Meaningful Use Info Meaningful Use Meaningful Use Diagnoses (Choose all that apply): None applicable Discharge Plan Admission Admit Date/Time: 07/07/25 00:05 Attending Provider: Jose Roy Primary Care Provider: Mandi Harris Consulting Providers: Kemar Barkley Instructions Additional Instructions / Restrictions: Follow-up with your PCP in 3 to 5 days to monitor your hemoglobin. If you continue to have GI discomfort would recommend outpatient follow-up with gastroenterology Discharge Orders/Prescriptions Prescriptions: New cefdinir 300 mg capsule 300 mg PO Q12H Qty: 2 0RF Rx Instructions: Start 07/11/2025 Continued fluoxetine 40 mg capsule 40 mg PO DAILY leflunomide 10 mg tablet 10 mg PO DAILY glimepiride 2 mg tablet 2 mg PO BID pantoprazole 40 mg tablet,delayed release (DR/EC) 40 mg PO DAILY cyanocobalamin (vitamin B-12) 1,000 mcg/mL solution 1,000 mcg IM QMONTH Patient Comments: ADMINISTER 1 ML IN THE MUSCLE 1 TIME EVERY MONTH buspirone 10 mg tablet 10 mg PO BID zolpidem 5 mg tablet 5 mg PO QHS PRN PRN (Reason: sleep) ergocalciferol (vitamin D2) [Vitamin D2] 1,250 mcg (50,000 unit) capsule 1,250 mcg PO FR metformin 500 mg tablet extended release 24 hr 1,000 mg PO BID insulin lispro [Humalog KwikPen Insulin] 100 unit/mL insulin pen 1 sliding scale dose subcut .ac Magnesium (oxide/AA chelate) 300 mg capsule 1 cap PO DAILY pregabalin 150 mg capsule 150 mg PO TID Jardiance 25 mg tablet 25 mg PO DAILY Avsola 100 mg recon soln 100 mg IV UD Patient Comments: every 6 weeks insulin glargine [Basaglar KwikPen U-100 Insulin] 100 unit/mL (3 mL) insulin pen 6 unit subcut QPM Referrals / Follow Up: Mandi Harris MD [Primary Care Provider, Internal Medicine] - Within 1 Week Disposition Disposition (needs filled in before D/C Order can be placed): Home, Self Care Charges/Coding Visit Charges Inpatient E&M: 08079 Disch Hosp >30min
== END 2025-07-10 13:25 | disposition home or self-care (01) ==
LOC: ED 23:16 → MS3 07-07 00:22
PROVIDERS: Admitting Provider Family Medicine; Emergency Provider Emergency Medicine; PCP Internal Medicine; Visit Provider Family Medicine
DX: A08.4 Viral intestinal infection, unspecified (principal); E11.9 Type 2 diabetes mellitus without complications; Z79.4 Long term (current) use of insulin; F41.9 Anxiety disorder, unspecified; E43 Unspecified severe protein-calorie malnutrition; Z68.1 Body mass index [BMI] 19.9 or less, adult; D64.9 Anemia, unspecified; F32.A Depression, unspecified; L40.9 Psoriasis, unspecified; Z79.84 Long term (current) use of oral hypoglycemic drugs; Z87.891 Personal history of nicotine dependence; Z79.899 Other long term (current) drug therapy; Z90.49 Acquired absence of other specified parts of digestive tract
CPT/HCPCS: 36415; 74177; 80048; 80053; 80076; 81001; 82274; 82728; 82746; 82962; 83010; 83540; 83550; 83605; 83615; 83690; 85025; 85045; 87077; 87086; 87088; 87186; 96361; 96365; 96366; 96372; 96375; 96376; 97802; 99221; 99284; Q9967; A4216; G0378; J2405